=== PATIENT | male | born 1995 | race Caucasian/White ===

== ENCOUNTER 2017-06-16 08:29 | Emergency (ER) | payer OTHER ==
[2017-06-16 08:44] VITALS: RESP 20; TEMP 97.9
[2017-06-16] MEDS ORDERED: HALOPERIDOL LACT 5 MG/ML INJ IVP ONE (08:52)
[2017-06-16] MEDS ORDERED: NS 1,000 ML IV ONE (08:53)
--- NOTE | 2017-06-16 08:55 | EDPHY ---
H & P Stated Complaint: CVS abd pain since this am 0600 n/v/d Time Seen by Provider: 06/16/17 08:38 HPI/ROS: Chief Complaint: Abdominal pain and vomiting HPI: 20-year-old male who woke up this morning at 6:00 a.m. with nausea vomiting and abdominal pain. He has a history of the same as been seen in multiple emergency department. He has been diagnosed with cyclic vomiting syndrome in the past. He has had endoscopies and colonoscopies in [place]. Patient states that the symptoms have been going on for about the last 1 1/2 to 2 years. No fevers or chills. No hematemesis or melena. No chest pain shortness of breath. He does have a history of chronic daily heavy marijuana use. ROS: 10 point Review of Systems is negative except as noted in the HPI. PMH: Cyclic vomiting syndrome Medications: None Allergies: None Social History: Positive smoking, occasional alcohol, daily heavy marijuana use Family History: Hypertension Physical Exam: Gen: Awake, Alert, No Distress HEENT: Nose: no rhinorrhea Eyes: PERRLA, EOMI Mouth: Moist mucosa Neck: Supple, no JVD Chest: nontender, lungs clear to auscultation Heart: S1, S2 normal, no murmur Abd: Soft, non-tender, no guarding Back: no CVA tenderness, no midline tenderness Ext: no edema, non-tender Skin: no rash Neuro: CN II-XII intact, Sensation grossly intact, Strength 5/5 in bilateral upper and lower extremities - Personal History Current Tetanus/Diphtheria Vaccine: Unsure Current Tetanus Diphtheria and Acellular Pertussis (TDAP): Unsure - Medical/Surgical History Other PMH: CVS - Social History Smoking Status: Heavy smoker Constitutional: Initial Vital Signs Temperature (C) 36.6 C 06/16/17 08:41 Heart Rate 57 L 06/16/17 08:41 Respiratory Rate 20 06/16/17 08:41 Blood Pressure 159/93 H 06/16/17 08:41 O2 Sat (%) 99 06/16/17 08:41 O2 Delivery Mode Room Air Allergies/Adverse Reactions: No Known Allergies Allergy (Unverified 06/16/17 08:41) Home Medications: Medication Instructions Recorded Olive 06/16/17 Medical Decision Making ED Course/Re-evaluation: 21-year-old male with a history of chronic cannabis use presenting with nausea vomiting. Symptoms are likely secondary to cannabinoid hyperemesis. He is feeling improved after IV fluids and IV Haldol. He has been counseled to discontinue using cannabis and follow up with primary care. He will to return for worsening symptoms. There is no evidence of acute intra-abdominal process at this time. - Data Points Medications Given: Discontinued Medications Haloperidol Lactate (Haldol Injection) 2.5 mg IVP EDNOW ONE Stop: 06/16/17 08:53 Last Admin: 06/16/17 09:02 Dose: 2.5 mg Departure - Departure Disposition: Home, Routine, Self-Care Clinical Impression: Cannabinoid hyperemesis syndrome, Vomiting Condition: Good Instructions: Acute Nausea and Vomiting (ED) Additional Instructions: Please discontinue using cannabis as I think this is causing your symptoms. Follow up with primary care physician in [place] when you return in 3-4 days. Return to the emergency depart for increasing nausea vomiting, abdominal pain, fevers, chills, or any other concerns.
[2017-06-16 09:52] VITALS: BP 148/77; PULSE 58; O2SAT 95
== END 2017-06-16 10:00 | disposition home or self-care (01) ==
LOC: CED 08:29
DX: R11.10 Vomiting, unspecified (principal); F17.200 Nicotine dependence, unspecified, uncomplicated; F12.90 Cannabis use, unspecified, uncomplicated
CPT/HCPCS: 96374